=== PATIENT | female | born 1980 | race Two or more races ===

== ENCOUNTER 2021-04-25 09:47 | Outpatient (CLI) | payer OTHER | END 2021-04-25 10:01 | disposition home or self-care (01) | LOC: RX STUDY 09:47 | PROVIDERS: ATTEND Obstetrics & Gynecology Reproductive Endocrinology | DX: N97.1 Female infertility of tubal origin (principal) ==

== ENCOUNTER 2023-11-18 12:31 | Emergency (ER) | payer OTHER ==
[~2023-11-18] VITALS: Ht 170.2 cm; Wt 106.1 kg
== END 2023-11-18 16:49 | disposition home or self-care (01) ==
LOC: ER 12:31
DX: R51.9 Headache, unspecified (principal); F41.8 Other specified anxiety disorders